=== PATIENT | female | born 1970 | race Caucasian/White ===

== ENCOUNTER 2020-06-24 16:01 | Emergency (ER) | payer OTHER, SELFPAY ==
[2020-06-24 16:15] VITALS: BP 160/76; PULSE 110; RESP 15; TEMP 36.8; O2SAT 98; BMI 30.7
--- NOTE | 2020-06-24 16:29 | DI.CT.S_ITS ---
PROCEDURE: CT FACIAL BONES WO CON INDICATIONS: fall with face and head injury TECHNIQUE: Noncontrast 2.5 mm thick axial images acquired from the mandible through the frontal sinuses, with coronal and sagittal reformatting. For radiation dose reduction, the following was used: automated exposure control, adjustment of mA and/or kV according to patient size. COMPARISON: [facility], CT, CT HEAD/BRAIN WO CON, 06/24/2020, 16:37. FINDINGS: Image quality: Excellent. Bones and teeth: Orbital martini are intact. Sinus martini show no fracture or deformity. Nasal bones and septum are intact. Visualized portions of the mandible demonstrate no fractures or subluxation. Zygomatic arches are intact. Pterygoid plates are intact. Visualized portions of the skull base and auditory canals are intact. Sinuses: There is focal prominent opacification seen involving the left maxillary sinus. The left maxillary sinus is small in size and demonstrates thickened martini. The paranasal sinuses otherwise appear clear. Note is made that the left frontal sinus is poorly developed. Soft tissues: Soft tissue swelling can be seen involving the right forehead. Vascular: Visualized vascular structures appear normal in the absence of contrast. Bony vascular foramina and canals are intact. IMPRESSION: No acute fractures are seen. Mild right forehead scalp hematoma seen. Chronic sinusitis seen of the left maxillary sinus. Dictated by: Constantino Ordoñez M.D. on 06/24/2020 at 16:08 Approved by: Constantino Ordoñez M.D. on 06/24/2020 at 16:09
--- NOTE | 2020-06-24 16:29 | DI.CT.S_ITS ---
PROCEDURE: CT HEAD/BRAIN WO CON INDICATIONS: fall with head and facial injury TECHNIQUE: Noncontrast 4.5 mm thick angled axial sections acquired from the foramen magnum to the vertex, with coronal and sagittal reformats. For radiation dose reduction, the following was used: automated exposure control, adjustment of mA and/or kV according to patient size. COMPARISON: [facility], CT, CT FACIAL BONES WO CON, 06/24/2020, 16:37. FINDINGS: Image quality: Excellent. CSF spaces: Basal cisterns are patent. No extra-axial fluid collections. Ventricles are normal in size and shape. Brain: No midline shift. No intracranial masses or hemorrhage. Goss-white matter interface is normal. Skull and face: Right forehead hematoma is seen. Calvarium and visualized facial bones are intact, without suspicious lesions. Sinuses: Is focal opacification can be seen involving the left maxillary sinus. Visualized sinuses and mastoids are otherwise clear. IMPRESSION: Right forehead hematoma, without an associated fracture. No acute intracranial abnormality can be seen. Dictated by: Constantino Ordoñez M.D. on 06/24/2020 at 16:06 Approved by: Constantino Ordoñez M.D. on 06/24/2020 at 16:08
--- NOTE | 2020-06-24 16:57 | ED.WOUNDLAC ---
HPI - Wound/Laceration General Chief Complaint: Wound/Laceration Stated Complaint: fall on trail, hit a rock, bit through lip Time Seen by Provider: 06/24/20 16:12 Source: patient Mode of arrival: Ambulatory Limitations: no limitations History of Present Illness HPI narrative: Patient here for facial injury after falling on a hiking trail. She was heading down the hill. Returning back to her car. Her foot got caught on something on the ground and she fell forward. Hitting a rock with her face. No loss of consciousness. No neck pain. No vision changes. No confusion. Patient had to take a [employer] ride to this hospital. Tetanus up-to-date. No loss of consciousness. No complaints of pain or injury to the extremities is set for small abrasion/contusion to the proximal right tibia. Otherwise has a laceration to the mid upper lip. Contusion to the forehead and nose as well. No nausea or vomiting. No altered mental status. Patient not on blood thinners. Patient is from [place]. flying back home tomorrow. She states she will contact oral maxillofacial provider when she gets back to [facility]. Related Data Previous Rx's Medication Instructions Recorded cephalexin 500 mg PO QID #20 cap 06/24/20 hydrocodone-acetaminophen 1 tab PO Q6H PRN #15 tab 06/24/20 ondansetron 4 mg PO Q8H PRN #10 tab 06/24/20 Allergies Allergy/AdvReac Type Severity Reaction Status Date / Time No Known Drug Allergies Allergy Verified 06/24/20 16:22 Review of Systems Review of Systems Narrative: GENERAL: Denies chills, fatigue, malaise, fever, sweats. HEENT: Denies sinus pain, ear pain, sore throat RESPIRATORY: Denies dyspnea, cough CARDIOVASCULAR: Denies chest pain, palpitations GASTROINTESTINAL: Denies nausea, vomiting, abdominal pain : Denies dysuria, frequency, hematuria MUSCULOSKELETAL: Complains muscle or bony pain SKIN: Denies rash, skin lesions, has abrasions and laceration to face NEUROLOGIC: Denies weakness, numbness ROS Unobtainable: All systems reviewed & are unremarkable except as noted in HPI and below Patient History Social History Smoking Status: Never smoker Smoking Status: Never smoker alcohol intake frequency: 0-2 drinks per day Substance Use Type: does not use Exam Narrative Exam Narrative: GENERAL: in no distress, not toxic not dyspneic HEAD: Normocephalic. There is contusion and mild tenderness and abrasion to the right forehead. No crepitus or step-off. No bleeding. Diffuse abrasions to the face but nontender maxilla and mandible EYES: Pupils equal round No scleral icterus. No injection no discharge ENT: Mucous membranes moist. There is a 1.5 cm horizontal laceration above the vermilion border above the upper lip at the philtrum. It is not not not through and through. Able to visualize mucosal surface of the mouth/lip. With Q-tip does not protrude through. Tender nose with edema. There is no no septal hematoma, no bleeding intranasally. Pharynx is clear no blood in the pharynx. Examination of the teeth, there is deformity of the upper front incisors, the right is slightly deviated posteriorly and the left is slightly deviated anteriorly, no gross fracture. Maxilla stable, no crepitus. No malocclusion or trismus. No tongue injury seen. NECK: Trachea midline. No midline tenderness or step-off. CARDIOVASCULAR: Regular rate and rhythm without murmurs RESPIRATORY: Clear to auscultation. Breath sounds equal bilaterally. No wheezes, rales, or rhonchi. GASTROINTESTINAL: Abdomen soft, non-tender EXTREMITIES: No gross deformities. Small contusion/abrasion to the right proximal leg. Patella and the nontender. Able to flex extend fully without any difficulty or pain. BACK: No flank tenderness. No midline tenderness or step-off. NEURO: AOx4. Clear speech no facial droop light touch intact to bilateral face hands and legs. Strong equal coverage specialist rn. SKIN: Warm and dry PSYCH: Not anxious, is cooperative Initial Vital Signs Initial Vital Signs: Vital Signs Temperature 98.2 F 06/24/20 16:15 Pulse Rate 110 H 06/24/20 16:15 Respiratory Rate 15 06/24/20 16:15 Blood Pressure 160/76 H 06/24/20 16:15 Pulse Oximetry 98 06/24/20 16:15 Procedures Laceration Repair Laceration 1: Site: lip Size (cm): 1.5 Description: linear Depth: simple, single layer Local Anesthetic: lidocaine 1% Amount of anesthesia used (mL): 2 Pre-repair: wound explored, irrigated extensively and deep structures intact Skin layer closed with: nylon Size (cm): 5-0 Number of sutures: 3 Technique: simple, interrupted Course Course Course Narrative: No new issues during course of stay. Orders Ordered: Discontinued Medications Hydrocodone Bitart/Acetaminophen (Hydrocodone/Acet 5/325 Tablet) 1 tab PO NOW ONE Stop: 06/24/20 18:16 Last Admin: 06/24/20 18:27 Dose: 1 tab Documented by: ARCHANA Hydrocodone Bitart/Acetaminophen (Hydrocodone/Acet 5/325 Prepack) 1 bottle MISC SEEINSTR ONE Stop: 06/24/20 18:17 Last Admin: 06/24/20 18:27 Dose: 1 bottle Documented by: ARCHANA Cephalexin HCl (Cephalexin 250 Mg Capsule) 500 mg PO NOW ONE Stop: 06/24/20 18:16 Last Admin: 06/24/20 18:26 Dose: 500 mg Documented by: ARCHANA Lidocaine HCl (Lidocaine 1% 20 Ml) 10 ml INJ NOW ONE Stop: 06/24/20 17:46 Neomycin/Polymyxin/Bacitracin (Neomycin/Polymyxin/Bacitra Ud Oint) 1 each TOP NOW ONE Stop: 06/24/20 18:17 Last Admin: 06/24/20 18:26 Dose: 1 each Documented by: ARCHANA Ondansetron HCl (Ondansetron 4 Mg Odt) 4 mg SL NOW ONE Stop: 06/24/20 18:16 Last Admin: 06/24/20 18:27 Dose: 4 mg Documented by: ARCHANA Ondansetron HCl (Ondansetron 4 Mg Odt Prepack) 1 bottle MISC SEEINSTR ONE Stop: 06/24/20 18:17 Last Admin: 06/24/20 18:27 Dose: 1 bottle Documented by: ARCHANA Reevaluation(s) Reevaluation #1: Reviewed results with patient and . They agree with treatment plan and follow-up with Oral maxillofacial provider when they return to [place]. Vital Signs Vital signs: Vital Signs - 8 hr 06/24/20 16:15 Temperature 98.2 F Pulse Rate 110 H Respiratory Rate 15 Blood Pressure 160/76 H Pulse Oximetry 98 MDM - Wound/Laceration Differential Diagnosis Differential diagnosis: Likely laceration Imaging Data CT scan - head: Radiologist's Impression: [address] [id number] Scan ReportSigned Patient: Patricia Betancur#: [id number]: 1970Acct:[id number]/Sex: 49 / FDate of Service: 06/24/20Loc: EDAccession Number: [id number] Procedure: CT head/brain wo con Ordering Provider: Prosper Du D.O. PROCEDURE: CT HEAD/BRAIN WO CON INDICATIONS: fall with head and facial injury TECHNIQUE: Noncontrast 4.5 mm thick angled axial sections acquired from the foramen magnum to the vertex, with coronal and sagittal reformats. For radiation dose reduction, the following was used: automated exposure control, adjustment of mA and/or kV according to patient size. COMPARISON: [facility], CT, CT FACIAL BONES WO CON, 06/24/2020, 16:37. FINDINGS: Image quality: Excellent. CSF spaces: Basal cisterns are patent. No extra-axial fluid collections. Ventricles are normal in size and shape. Brain: No midline shift. No intracranial masses or hemorrhage. Goss-white matter interface is normal. Skull and face: Right forehead hematoma is seen. Calvarium and visualized facial bones are intact, without suspicious lesions. Sinuses: Is focal opacification can be seen involving the left maxillary sinus. Visualized sinuses and mastoids are otherwise clear. IMPRESSION: Right forehead hematoma, without an associated fracture. No acute intracranial abnormality can be seen. Dictated by: Constantino Ordoñez M.D. on 06/24/2020 at 16:06 Approved by: Constantino Ordoñez M.D. on 06/24/2020 at 16:08 CT facial bones: Radiologist's Impression: [address] [id number] Scan ReportSigned Patient: Patricia Betancur#: [id number]: [id number]:[id number]/Sex: 49 / FDate of Service: 06/24/20Loc: EDAccession Number: [id number] Procedure: CT facial bones wo con Ordering Provider: Prosper Du D.O. PROCEDURE: CT FACIAL BONES WO CON INDICATIONS: fall with face and head injury TECHNIQUE: Noncontrast 2.5 mm thick axial images acquired from the mandible through the frontal sinuses, with coronal and sagittal reformatting. For radiation dose reduction, the following was used: automated exposure control, adjustment of mA and/or kV according to patient size. COMPARISON: [facility], CT, CT HEAD/BRAIN WO CON, 06/24/2020, 16:37. FINDINGS: Image quality: Excellent. Bones and teeth: Orbital martini are intact. Sinus martini show no fracture or deformity. Nasal bones and septum are intact. Visualized portions of the mandible demonstrate no fractures or subluxation. Zygomatic arches are intact. Pterygoid plates are intact. Visualized portions of the skull base and auditory canals are intact. Sinuses: There is focal prominent opacification seen involving the left maxillary sinus. The left maxillary sinus is small in size and demonstrates thickened martini. The paranasal sinuses otherwise appear clear. Note is made that the left frontal sinus is poorly developed. Soft tissues: Soft tissue swelling can be seen involving the right forehead. Vascular: Visualized vascular structures appear normal in the absence of contrast. Bony vascular foramina and canals are intact. IMPRESSION: No acute fractures are seen. Mild right forehead scalp hematoma seen. Chronic sinusitis seen of the left maxillary sinus. Dictated by: Constantino Ordoñez M.D. on 06/24/2020 at 16:08 Approved by: Constantino Ordoñez M.D. on 06/24/2020 at 16:09 [facility] Narrative Medical decision making narrative: Appropriate for discharge home. Patient neurovascular intact. No altered mental status. Bleeding controlled. No labs indicated. Discharge Plan Departure Patient Disposition: Home Clinical Impression: Laceration of lip without complication, Contusion of face, Abrasion of face, Abrasion of leg, right Instructions: DI for Laceration Repair, DI for Contusion, DI for Closed Head Injury, DI for Abrasion Activity Restrictions/Additional Instructions: Call oral maxillofacial specialist/surgeon when you returns home tomorrow. You will need office appointment this week for recheck of your dental injuries. Three stitches to be removed in 8 days from your upper lip. Clean wounds twice a day with warm soap and water and then apply thin layer of topical antibiotic. Keep skin injuries out of sun exposure. Return if worse or any questions or concerns. Prescriptions: New hydrocodone-acetaminophen 5-325 mg tablet 1 tab PO Q6H PRN (Reason: pain) Qty: 15 RF: 0 cephalexin 500 mg capsule 500 mg PO QID Qty: 20 RF: 0 ondansetron 4 mg tablet,disintegrating 4 mg PO Q8H PRN (Reason: nausea and vomiting) Qty: 10 RF: 0
[2020-06-24 18:20] VITALS: BP 142/74; PULSE 98; RESP 16; O2SAT 99
[2020-06-24] MEDS: cephALEXin 250 MG CAPSULE 500 MG PO (18:26)
[2020-06-24] MEDS: NEOMYCIN/POLYMYXIN/BACITRA UD OINT 1 EACH TOP (18:26)
[2020-06-24] MEDS: HYDROCODONE/ACET 5/325 TABLET 1 TAB PO (18:27)
[2020-06-24] MEDS: HYDROCODONE/ACET 5/325 PREPACK 1 BOTTLE MISC (18:27)
[2020-06-24] MEDS: ONDANSETRON 4 MG ODT SL (18:27)
[2020-06-24] MEDS: ONDANSETRON 4 MG ODT PREPACK 1 BOTTLE MISC (18:27)
== END 2020-06-24 18:45 | disposition home or self-care (01) ==
PROVIDERS: Emergency Provider Emergency Medicine
DX: S01.511A Laceration without foreign body of lip, initial encounter (principal); S80.811A Abrasion, right lower leg, initial encounter; S09.90XA Unspecified injury of head, initial encounter; W19.XXXA Unspecified fall, initial encounter
CPT/HCPCS: 12011; 70450; 70486; 99283; 99284